=== PATIENT | male | born 1965 | race Caucasian/White ===

== ENCOUNTER → 2023-10-01 | Emergency (ER) | payer OTHER ==
[2023-10-01 13:49] LABS: SARS-CoV-2 Antigen Rapid Res Negative (Negative)
[2023-10-01 14:31] LABS: Absolute Lymphocytes (CBC) 1.6 K/uL (0.7-4.9); Hematocrit 31.2 % (39.6-49.0); Lymphocytes % 19.6 % (15.3-44.8); MCV 89.2 fL (80-100); MPV 8.3 fL (7.6-11.3); Platelets 227 thou/uL (152-406)
[2023-10-01 14:43] LABS: Protime INR 0.94
--- NOTE | 2023-10-01 14:43 | RAD REPORT ---
EXAM DESCRIPTION: RAD - Chest Single View - 10/01/2023 2:28 pm CLINICAL HISTORY: COUGH COMPARISON: <Comparisons> FINDINGS: Lines: None. Lungs: No evidence of edema or pneumonia. Pleural: No significant pleural effusions or pneumothorax. Cardiac: The heart size is within normal limits. Mediastinum: Within normal limits. Bones: No acute fractures. Other: Small radiopaque density overlying the medial right lung of doubtful significance. IMPRESSION: No acute cardiopulmonary disease.
[2023-10-01 15:06] LABS: Potassium 3.9 mEq/L (3.5-5.1)
--- NOTE | 2023-10-01 15:27 | EDPHYS ---
Physician Documentation [facility] Name: Pablito Vasquez Jr Age: 58 yrs Sex: Male : 1965 Arrival Date: 10/01/2023 Time: 12:39 Bed 12 Private MD: Shin Levin ED Physician Ac Ham HPI: 10/01 13:36 This 58 yrs old Male presents to ER via Wheelchair with complaints of Vomiting, rn Weakness, Fatigue. 13:36 The patient presents to the emergency department with nausea, cough, congestion. Onset: rn The symptoms/episode began/occurred 1 week(s) ago. Possible causes: illness vs CKD. The symptoms are aggravated by nothing. The symptoms are alleviated by nothing. Associated signs and symptoms: Pertinent positives: nausea, Cough, congestion. Severity of symptoms: At their worst the symptoms were mild in the emergency department the symptoms are unchanged. The patient has not experienced similar symptoms in the past. Patient reports has known chronic kidney disease, already had fistula for dialysis but has not matured yet. Reports for the last week has had cough congestion nausea/vomiting and is unsure if he picked something up or his kidney disease is worsening. Denies confusion or altered mental status. No chest pain. No shortness of breath. No abdominal pain.. 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 - Social history:: Smoking status: Patient reports use of chewing tobacco. Patient/guardian denies using tobacco. - Family history:: not pertinent. - Hospitalizations: : No recent hospitalization is reported. ROS: 13:36 Constitutional: Negative for fever, chills, and weight loss, Cardiovascular: Negative rn for chest pain, palpitations, and edema, Respiratory: Negative for shortness of breath, cough, wheezing, and pleuritic chest pain, Abdomen/GI: Positive for nausea/vomiting MS/Extremity: Negative for injury and deformity, Skin: Negative for injury, rash, and discoloration, Neuro: Positive for generalized weakness Exam: 13:36 Constitutional: This is a well developed, well nourished patient who is awake, alert, rn and in no acute distress. Head/Face: Normocephalic, atraumatic. ENT: Dry mucous membranes, no stridor Cardiovascular: Regular rate and rhythm. No pulse deficits. Respiratory: No increased work of breathing, no retractions or nasal flaring. Abdomen/GI: Soft, non-tender Neuro: Awake and alert, GCS 15 Vital Signs: 12:58 BP 145 / 78; Pulse 80; Resp 17; Temp 98.2; Pulse Ox 100% ; Weight 68.04 kg; Height 5 ll1 ft. 10 in. ; Pain 0/10; 15:44 BP 142 / 76; Pulse 78; Resp 18; Temp 97.9; Pulse Ox 100% on R/A; ph 12:58 Body Mass Index 21.52 (68.04 kg, 177.8 cm) ll1 12:58 Pain Scale: Adult ll1 MDM: 12:47 Patient medically screened. rn 15:24 Differential diagnosis: viral gastroenteritis, gastroenteritis, Viral syndrome, uremia, grad intern renal failure, acidosis. Data reviewed: vital signs, nurses notes, lab test result(s), and as a result, I will discharge patient. Care significantly affected by the following chronic conditions: Chronic Kidney Disease. Counseling: I had a detailed discussion with the patient and/or guardian regarding the historical points, exam findings, and any diagnostic results supporting the discharge/admit diagnosis, lab results, the need for outpatient follow up, to return to the emergency department if symptoms worsen or persist or if there are any questions or concerns that arise at home. Special discussion: I discussed with the patient/guardian in detail that at this point there is no indication for admission to the hospital. It is understood, however, that if the symptoms persist or worsen the patient needs to return immediately for re-evaluation. Based on the history and exam findings, there is no indication for further emergent testing or inpatient evaluation. ED course: Patient without significant changes compared to blood work that showed me and was drawn recently. Still shows chronic kidney disease, uremia in the 70s, creatinine 5.7. No acidosis, normal potassium, no signs of volume overload. COVID and flu negative. 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 Has appointment with a new sound installation worker that is local Dr. Moscoso this next week. I have personally reviewed all of the results, including but not limited to blood tests and imaging deemed necessary to safely discharge this patient at this time. All results given to and printed out for patient. I personally went over all the results with the patient and answered all questions. Patient will follow-up with PCP and or specialist as discussed. Return precautions given and understood.. 10/01 12:48 Order name: Flu; Complete Time: 14:42 rn 10/01 12:48 Order name: SARS RAPID; Complete Time: 14:42 rn 10/01 13:55 Order name: CBC with Diff; Complete Time: 15:11 rn 10/01 13:55 Order name: Basic Metabolic Panel; Complete Time: 15:11 rn 10/01 13:55 Order name: Protime (+inr); Complete Time: 14:45 rn 10/01 13:55 Order name: Ptt, Activated; Complete Time: 14:45 rn 10/01 13:55 Order name: BNP; Complete Time: 15:11 rn 10/01 13:55 Order name: XRAY Chest (1 view); Complete Time: 14:45 rn 10/01 13:55 Order name: IV Start; Complete Time: 14:35 rn Administered Medications: No medications were administered Disposition Summary: 10/01/23 15:27 Discharge Ordered Notes: Location: Home rn Problem: an ongoing problem rn Symptoms: are unchanged rn Condition: Stable rn Diagnosis - Chronic kidney disease, unspecified rn Followup: rn - With: Private Physician - When: As needed - Reason: Recheck today's complaints, Re-evaluation by your physician Discharge Instructions: - Discharge Summary Sheet rn - End-Stage Kidney Disease rn - Chronic Kidney Disease, Adult rn Forms: - Medication Reconciliation Form rn - Thank You Letter rn - Antibiotic advanced practice rn - Prescription Opioid Use rn - Patient Portal Instructions rn - Leadership Thank You Letter rn Signatures: Dispatcher [employer] Ac Valiente MD MD rn Lewis, Lynsay, RN RN ll1
--- NOTE | 2023-10-01 15:27 | ER ---
Nurse's Notes [facility] Name: Pablito Vasquez Jr Age: 58 yrs Sex: Male : 1965 Arrival Date: 10/01/2023 Time: 12:39 Bed 12 Private MD: Shin Levin Diagnosis: Chronic kidney disease, unspecified Presentation: 10/01 12:58 Chief complaint: Patient states: N/V, weakness, fatigue for 1 week. Cough/"sinus stuff" ll1 for 1 week. No known fever. Coronavirus screen: Vaccine status: Patient reports being unvaccinated. Client denies travel out of the [place] in the last 14 days. congestion, cough unrelated to allergies, fatigue. Ebola Screen: Patient denies travel to an Ebola-affected area in the 21 days before illness onset. Initial Sepsis Screen: Does the patient meet any 2 criteria? No. Patient's initial sepsis screen is negative. Does the patient have a suspected source of infection? No. Patient's initial sepsis screen is negative. Risk Assessment: Do you want to hurt yourself or someone else? Patient reports no desire to harm self or others. Onset of symptoms was September 24, 2023. 12:58 Method Of Arrival: Wheelchair ll1 12:58 Acuity: HERIBERTO 3 ll1 Triage Assessment: 12:58 General: Appears uncomfortable, Behavior is calm, cooperative, appropriate for age. ll1 General: Reports fatigue for. Pain: Denies pain. EENT: Reports nasal discharge. Neuro: Reports weakness. Respiratory: Reports cough that is. GI: Reports nausea, vomiting. 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 - Social history:: Smoking status: Patient reports use of chewing tobacco. Patient/guardian denies using tobacco. - Family history:: not pertinent. - Hospitalizations: : No recent hospitalization is reported. Screenin:44 [facility] ED Fall Risk Assessment (Adult) History of falling in the last 3 months, ph including since admission No falls in past 3 months (0 pts) Score/Fall Risk Level 0 - 2 = Low Risk Oriented to surroundings, Maintained a safe environment, Provided non-skid footwear, Hourly rounding (assess needs \\T\\ fall precautionary measures) done. Abuse screen: Denies threats or abuse. Denies injuries from another. Nutritional screening: No deficits noted. Tuberculosis screening: No symptoms or risk factors identified. Assessment: 15:43 General: Appears in no apparent distress. comfortable, slender, well groomed, Behavior ph is calm, cooperative, appropriate for age, Reports fatigue for >3 days. Pain: Denies pain. Neuro: Level of Consciousness is awake, alert, obeys commands, Oriented to person, place, time, situation. Cardiovascular: Capillary refill < 3 seconds in bilateral fingers Patient's skin is warm and dry. GI: Abdomen is non-distended, Reports nausea, vomiting, Patient currently denies abdominal pain. Derm: Skin is pink, warm \\T\\ dry. Vital Signs: 12:58 BP 145 / 78; Pulse 80; Resp 17; Temp 98.2; Pulse Ox 100% ; Weight 68.04 kg; Height 5 ll1 ft. 10 in. ; Pain 0/10; 15:44 BP 142 / 76; Pulse 78; Resp 18; Temp 97.9; Pulse Ox 100% on R/A; ph 12:58 Body Mass Index 21.52 (68.04 kg, 177.8 cm) ll1 12:58 Pain Scale: Adult ll1 ED Course: 12:40 Patient arrived in ED. mr 12:41 Shin Levin, is Private Physician. mr 12:47 Ac Ham MD is Attending Physician. rn 12:57 Arm band placed on. ll1 12:59 Triage completed. ll1 14:16 Patient placed in an exam room, on a stretcher. ll1 14:23 Initial lab(s) drawn, by me, sent to lab. Inserted saline lock: 22 gauge in right hand, iw using aseptic technique. 14:30 XRAY Chest (1 view) In Process Unspecified. EDMS 14:43 Annalisa Rudd, RN is Primary Nurse. ph 15:45 Patient has correct armband on for positive identification. Bed in low position. Call ph light in reach. Side rails up X 1. Door closed. Noise minimized. Warm blanket given. 15:45 No provider procedures requiring assistance completed. IV discontinued, intact, ph bleeding controlled, No redness/swelling at site. Pressure dressing applied. Administered Medications: No medications were administered Medication: 15:45 VIS not applicable for this client. ph Outcome: 15:27 Discharge ordered by . rn 15:45 Discharged to home via wheelchair, with significant other, ph 15:45 Condition: good 15:45 Discharge instructions given to patient, significant other, Instructed on discharge instructions, follow up and referral plans. Demonstrated understanding of instructions, follow-up care, 15:46 Patient left the ED. ph Signatures: Dispatcher [employer] EDAK Judy Hernandez, Reg Reg mr Zora Ortega, RN RN iw Ac Ham MD MD rn Hall, Patricia, RN RN ph Jayro Quintanilla RN RN ll1 Corrections: (The following items were deleted from the chart) 14:00 12:58 Chief complaint: Patient states: N/V, weakness, fatigue for 1 week. Cough/sinus ph stuff for 1 week. No known fever ll1
[2023-10-01 17:55] VITALS: BP 142/76; TEMP 97.9; O2SAT 100
== END ==
LOC: ER 12:39
DX: N18.9 Chronic kidney disease, unspecified (principal); R53.1 Weakness; F17.220 Nicotine dependence, chewing tobacco, uncomplicated; Z11.52 Encounter for screening for COVID-19
CPT/HCPCS: 36415; 71045; 80048; 83880; 85025; 85610; 85730; 87804; 87811; 99284

== ENCOUNTER 2024-05-27 09:31 | Emergency (ER) | payer OTHER ==
--- NOTE | 2024-05-27 10:02 | RAD REPORT ---
EXAM DESCRIPTION: CTAbdomen Pelvis Wo Contrast - 05/27/2024 9:50 am CLINICAL HISTORY: rectal bleeding COMPARISON: No comparisons TECHNIQUE: CT of the abdomen and pelvis was performed without contrast. All CT scans are performed using dose optimization technique as appropriate and may include automated exposure control or mA/KV adjustment according to patient size. FINDINGS: Lower chest: Mild circumferential thickened distal esophagus. This could reflect esophagit is. Liver: No acute abnormality or suspicious lesions. Biliary: Cholelithiasis without CT evidence of acute cholecystitis. Stomach: No significant focal abnormality. Duodenum: No significant focal abnormality. Pancreas: No significant abnormality. Spleen: No significant abnormality. Adrenal: No suspicious lesions. Kidney/ureter: No hydronephrosis. No renal calculi. Retroperitoneum: No retroperitoneal adenopathy. Vascular: Atherosclerosis. Bowel: Mild wall thickening versus underdistention involving the midtransverse colon through the rect um. There is some questionable stranding at the region of the splenic flexure.. Peritoneum: No ascites or free air. Bladder: Grossly unremarkable. Reproductive: Mild prostatomegaly. Bones: No acute fracture. Moderate severe disc height loss L5-S1 with posterior spurring. Other: n/a IMPRESSION: Possible colitis versus underdistention extending from the mid transverse colon to the r ectum. This includes at the splenic flexure were there is some mild stranding. Colitis from infectiou s, inflammatory, as well as ischemic etiologies are within the differential. Cholelithiasis without CT evidence of acute cholecystitis.
[2024-05-27] MEDS ORDERED: NA CHLORIDE 0.9% 1,000 ML ONE ×2 (10:58→12:00)
[2024-05-27] MEDS ORDERED: NA CHLORIDE 0.9% 100 ML ONE ×2 (11:15→14:40)
[2024-05-27] MEDS ORDERED: PIPERACIL/TAZO 3.375 GM VIAL IV ONE (11:15)
[2024-05-27 11:55] LABS: Absolute Lymphocytes (CBC) 0.5 K/uL (0.7-4.9); Absolute Monocytes 0.1 K/uL (0.1-1.3); Absolute Neutrophil 0.9 K/uL (1.8-8.0); Basophils % 0.6 % (0-1.3); Eosinophils % 1.3 % (0-4.4); Hematocrit 7.5 % (39.6-49.0); Lymphocytes % 34.3 % (15.3-44.8); MCH 31.4 pg (27.0-35.0); MCHC 32.1 g/dL (32.0-36.0); MCV 97.6 fL (80-100); MPV 8.4 fL (7.6-11.3); Monocytes % 7.7 % (3.3-12.3); Neutrophils % 56.1 % (41.7-73.7); Platelets 45 thou/uL (152-406); RBC Red Blood Cell Count 0.77 M/uL (4.33-5.43); Red Cell Distribution Width 13.9 % (12.1-15.2)
[2024-05-27 12:00] LABS: PT Prothrombin Time 33.6 SECONDS (9.4-12.5); PTT, Activated Partial Thromb 99.8 SECONDS (24.3-36.9); Protime INR 3.1
[2024-05-27 12:12] LABS: Alkaline Phosphatase 18 U/L (45-117); BUN Blood Urea Nitrogen 16 mg/dL (7-18); Glomerular Filtration Rate 100 ml/min (=/>90); Glucose Level 22 mg/dL (74-106); Lipase 73 U/L (13-75)
[2024-05-27 12:13] LABS: ALT/SGPT < 14 U/L (16-61); AST/SGOT < 10 U/L (15-37); Albumin < 0.9 g/dL (3.4-5.0); Albumin/Globulin Ratio ND (1.1-1.8); Bicarbonate < 8 mEq/L (21-32); Bilirubin Total < 0.2 mg/dL (0.2-1.0); Globulin 1.1 g/dL (2.3-3.5); Protein, Total < 2.0 g/dL (6.4-8.2)
[2024-05-27 12:15] LABS: Sodium Level 156 mEq/L (136-145)
[2024-05-27 12:16] LABS: Hemoglobin 2.4 g/dL (13.6-17.9)
[2024-05-27 12:47] LABS: Absolute Basophils 0.1 K/uL (0-0.5); Absolute Eosinophils 0.1 K/uL (0-0.5); Absolute Lymphocytes (CBC) 2.2 K/uL (0.7-4.9); Absolute Monocytes 0.7 K/uL (0.1-1.3); Absolute Neutrophil 4.7 K/uL (1.8-8.0); Basophils % 1.1 % (0-1.3); Eosinophils % 0.7 % (0-4.4); Hemoglobin 9.7 g/dL (13.6-17.9); Lymphocytes % 28.5 % (15.3-44.8); MCH 30.7 pg (27.0-35.0); MCHC 32.2 g/dL (32.0-36.0); MCV 95.3 fL (80-100); MPV 9.1 fL (7.6-11.3); Monocytes % 8.8 % (3.3-12.3); Neutrophils % 60.9 % (41.7-73.7); Platelets 164 thou/uL (152-406); RBC Red Blood Cell Count 3.15 M/uL (4.33-5.43); Red Cell Distribution Width 14.1 % (12.1-15.2)
[2024-05-27 12:55] LABS: PT Prothrombin Time 11.6 SECONDS (9.4-12.5); PTT, Activated Partial Thromb 30.4 SECONDS (24.3-36.9); Protime INR 1.04
[2024-05-27 13:12] LABS: ALT/SGPT 17 U/L (16-61); Albumin 2.6 g/dL (3.4-5.0); Albumin/Globulin Ratio 0.9 (1.1-1.8); Alkaline Phosphatase 116 U/L (45-117); Anion Gap 17.8 mEq/L (5.0-15.0); BUN Blood Urea Nitrogen 76 mg/dL (7-18); Bicarbonate 20 mEq/L (21-32); Bilirubin Total 0.6 mg/dL (0.2-1.0); Glomerular Filtration Rate 9 ml/min (=/>90); Glucose Level 129 mg/dL (74-106); Lipase 380 U/L (13-75); Potassium 4.8 mEq/L (3.5-5.1); Protein, Total 5.6 g/dL (6.4-8.2); Sodium Level 138 mEq/L (136-145)
[2024-05-27 13:13] LABS: AST/SGOT < 10 U/L (15-37)
--- NOTE | 2024-05-27 13:40 | EDPHYS ---
Physician Documentation [facility] Name: Pablito Vasquez Jr Age: 58 yrs Sex: Male : 1965 Arrival Date: 05/27/2024 Time: 09:31 Bed 4 Private MD: ED Physician Raj Del Real HPI: 05/27 10:02 This 58 yrs old Male presents to ER via Unassigned with complaints of Rectal bleeding. rt 10:02 Patient presents to the ED with rectal bleeding starting today about 5. States that at rt this bright red blood. The patient reports that he has been feeling somewhat weak for the past several days but only noticed the bleeding today. Had a colonoscopy with polyp removal several months ago. The patient denies other acute complaints at this time, symptoms are moderate in severity, no other aggravating or elevating factors. Reports nausea without vomiting.. Historical: - Allergies: 10:05 No Known Allergies; ld1 - PMHx: 10:05 kidney failure (MRSA); MRSA; Hypertensive disorder; ld1 - PSHx: 10:05 fistula L arm (MRSA); ld1 - Immunization history:: Adult Immunizations up to date. - Infectious Disease History:: Denies. - Family history:: not pertinent. - Social history:: Smoking status: Patient denies any tobacco usage or history of. ROS: 10:02 Constitutional: Negative for fever, chills, and weight loss, Cardiovascular: Negative rt for chest pain, palpitations, and edema, Respiratory: Negative for shortness of breath, cough, wheezing, and pleuritic chest pain, 10:02 MS/Extremity: Negative for injury and deformity, Skin: Negative for injury, rash, and discoloration, 10:02 Abdomen/GI: Positive for nausea, Negative for abdominal pain, Exam: 10:02 Constitutional: This is a well developed, well nourished patient who is awake, alert, rt and in no acute distress. Head/Face: Normocephalic, atraumatic. Chest/axilla: Normal chest wall appearance and motion. Nontender with no deformity. No lesions are appreciated. Cardiovascular: Regular rate and rhythm with a normal S1 and S2. No gallops, murmurs, or rubs. Normal PMI, no JVD. No pulse deficits. Respiratory: Lungs have equal breath sounds bilaterally, clear to auscultation and percussion. No rales, rhonchi or wheezes noted. No increased work of breathing, no retractions or nasal flaring. Abdomen/GI: Soft, non-tender, with normal bowel sounds. No distension or tympany. No guarding or rebound. No evidence of tenderness throughout. Skin: Warm, dry with normal turgor. Normal color with no rashes, no lesions, and no evidence of cellulitis. MS/ Extremity: Pulses equal, no cyanosis. Neurovascular intact. Full, normal range of motion. Neuro: Awake and alert, GCS 15, oriented to person, place, time, and situation. Cranial nerves II-XII grossly intact. Motor strength 5/5 in all extremities. Sensory grossly intact. Cerebellar exam normal. Normal gait. 11:33 ECG was reviewed by the Attending Physician. rt Vital Signs: 10:00 BP 124 / 80; Pulse 77; Resp 18; Pulse Ox 100% on R/A; ld1 10:03 BP 154 / 83; Pulse 74; Resp 18; Temp 97.5(TE); Pulse Ox 100% on R/A; Weight 68.04 kg; ld1 Height 5 ft. 10 in. ; Pain 0/10; 10:07 BP 124 / 80; Pulse 77; Resp 18; Pulse Ox 99% on R/A; ld1 10:45 BP 73 / 55; Pulse 77; Resp 18; Pulse Ox 100% on R/A; ld1 11:30 BP 80 / 57; Pulse 68; Resp 18; Pulse Ox 100% on R/A; ld1 11:45 BP 69 / 56; Pulse 69; Resp 18; Pulse Ox 100% on R/A; ld1 11:48 BP 73 / 60; Pulse 70; Resp 18; Pulse Ox 100% on R/A; ld1 11:50 BP 82 / 58; Pulse 70; Resp 18; Pulse Ox 99% on R/A; ld1 12:12 BP 58 / 45; Pulse 71; Resp 16; Temp 97.6; Pulse Ox 100% ; ar6 12:17 BP 64 / 43; Pulse 72; Resp 16; Temp 97.6; Pulse Ox 100% on R/A; ar6 12:22 BP 85 / 64; Pulse 68; Resp 17; Temp 96.8; Pulse Ox 100% on R/A; ar6 12:25 BP 85 / 64; Pulse 68; Resp 17; Temp 96.8; Pulse Ox 100% on R/A; ar6 12:27 BP 85 / 64; Pulse 67; Resp 18; Temp 97.2; Pulse Ox 100% on R/A; ar6 12:32 BP 80 / 60; Pulse 69; Resp 18; Temp 97.3; Pulse Ox 100% on R/A; ar6 12:37 BP 124 / 70; Pulse 69; Resp 18; Temp 97.3; Pulse Ox 100% on R/A; ar6 12:42 BP 135 / 79; Pulse 68; Resp 20; Pulse Ox 100% on R/A; ar6 12:47 BP 118 / 79; Pulse 73; Resp 16; Temp 97.2; Pulse Ox 100% on R/A; ar6 12:56 BP 118 / 79; Pulse 72; Resp 14; Pulse Ox 98% on R/A; mb9 13:15 BP 114 / 82; Pulse 74; Resp 8; Pulse Ox 100% ; mb9 13:35 BP 117 / 72; Pulse 70; Resp 18; Pulse Ox 100% ; mb9 13:55 BP 66 / 56; Pulse 70; Resp 15; Pulse Ox 100% ; mb9 14:05 BP 58 / 49; Pulse 69; Resp 15; Pulse Ox 100% on R/A; mb9 14:11 BP 58 / 47; Pulse 71; Resp 16; Pulse Ox 100% on R/A; mb9 14:35 BP 103 / 70; Pulse 71; Resp 14; Pulse Ox 100% on R/A; ld1 14:50 BP 141 / 81; Pulse 75; Resp 18; Pulse Ox 100% on R/A; ld1 15:00 BP 172 / 89; Pulse 73; Resp 12; Pulse Ox 100% on R/A; ld1 15:10 BP 148 / 82; Pulse 73; Resp 12; Pulse Ox 100% on R/A; ld1 15:32 BP 161 / 84; Pulse 74; Resp 16; Temp 97.3(TE); Pulse Ox 100% ; mb9 10:03 Body Mass Index 21.52 (68.04 kg, 177.8 cm) ld1 10:03 Pain Scale: Adult ld1 12:12 baseline v/s for blood transfusion; see tranfusion flowsheet ar6 12:17 5 minute V/S transfusion check; see transfusion flowsheet ar6 12:22 10 minute v/s check for transfusion; see transfusion flowsheet ar6 12:25 timed completed V/S for blood transfusion; see blood transfusion flowsheet ar6 12:27 baseline V/S for 2nd unit for blood transfusion; see blood transfusion flowsheet ar6 12:32 5 minute V/S for 2nd unit for blood transfusion; see blood transfusion flowsheet ar6 12:37 10 minute V/S for 2nd unit for blood transfusion; see blood transfusion flowsheet ar6 12:42 15 minutes V/S for 2nd unit for blood transfusion; see blood transfusion flowsheet ar6 12:47 time completed V/S for 2nd unit for blood transfusion; see blood transfusion flowsheet ar6 Procedures: 16:01 Central Line: the site was prepped with ChloraPrep, a triple lumen catheter was rt inserted, in the left internal jugular vein, in 1 attempts. placement was verified, by CXR, by blood return, the site was dressed with Chlorhexidine impregnated Tegaderm, the patient tolerated the procedure, well. MDM: 09:32 Patient medically screened. rt 16:01 Differential Diagnosis Colitis, lower GI bleed, upper GI bleed. Data reviewed: vital rt signs, nurses notes, lab test result(s), EKG, radiologic studies. Consideration of Admission/Observation Patient requires transfer due to ICU capacity. I considered the following discharge prescriptions or medication management in the emergency department Medications were administered in the Emergency Department. See MAR. Independent interpretation of the following test(s) in the Emergency Department CT Scan: My interpretation is No bowel obstruction seen on my interpretation of CT scan images. Care significantly affected by the following chronic conditions: Chronic Kidney Disease. Counseling: I had a detailed discussion with the patient and/or guardian regarding the historical points, exam findings, and any diagnostic results supporting the discharge/admit diagnosis, lab results, radiology results, the need to transfer to another facility. Response to treatment: the patient's symptoms have mildly improved after treatment. ED course: Patient was initially normotensive, became significantly hypotensive, requiring multiple blood products. Patient had continued hypotension despite blood products, Levophed was started, much improvement of the patient's blood pressure. Will transfer patient for higher level of care.. 05/27 09:36 Order name: CBC with Diff; Complete Time: 13:04 rt 05/27 09:36 Order name: CMP; Complete Time: 13:04 rt 05/27 09:36 Order name: Lipase; Complete Time: 13:04 rt 05/27 09:36 Order name: Type And Screen rt 05/27 09:36 Order name: PT-INR; Complete Time: 13:04 rt 05/27 09:36 Order name: Ptt, Activated; Complete Time: 13:04 rt 05/27 11:04 Order name: Blood Culture Adult (2) rt 05/27 11:04 Order name: Lactate w/ 2H reflex if indic.; Complete Time: 13:04 rt 05/27 12:05 Order name: Packed RBC Leukored EDMS 05/27 12:05 Order name: RBC Leukored Pheresis EDMS 05/27 12:24 Order name: Ptt, Activated; Complete Time: 13:04 ap3 05/27 12:24 Order name: PT-INR; Complete Time: 13:04 ap3 05/27 12:24 Order name: CBC with Diff; Complete Time: 13:04 ap3 05/27 12:24 Order name: CMP; Complete Time: 13:28 ap3 05/27 12:24 Order name: Lipase; Complete Time: 13:28 ap3 05/27 13:36 Order name: CBC with Diff; Complete Time: 14:56 rt 05/27 13:36 Order name: CMP; Complete Time: 14:56 rt 05/27 13:36 Order name: Lactate w/ 2H reflex if indic.; Complete Time: 14:56 rt 05/27 13:36 Order name: PT-INR; Complete Time: 14:18 rt 05/27 13:36 Order name: Ptt, Activated; Complete Time: 14:18 rt 05/27 13:54 Order name: Bb Add On bd 05/27 14:15 Order name: ABO/RH no charge; Complete Time: 14:18 EDMS 05/27 14:23 Order name: Packed RBCs (Additional Unit) EDIN 05/27 14:59 Order name: Fresh Frozen Plasma EDIN 05/27 09:36 Order name: CT Abd/Pelvis - Without Contrast; Complete Time: 10:04 rt 05/27 14:44 Order name: XRAY Chest (1 view); Complete Time: 14:56 ld1 05/27 11:04 Order name: EKG; Complete Time: 11:04 rt 05/27 09:36 Order name: IV Saline Lock; Complete Time: 10:10 rt 05/27 09:36 Order name: Labs collected and sent; Complete Time: 11:34 rt 05/27 11:04 Order name: Accucheck; Complete Time: 12:04 rt 05/27 11:04 Order name: Cardiac monitoring; Complete Time: 11:30 rt 05/27 11:04 Order name: EKG - Nurse/Tech; Complete Time: 11:33 rt 05/27 11:04 Order name: IV Saline Lock - Large Bore; Complete Time: 11:30 rt 05/27 11:04 Order name: O2 Per Protocol; Complete Time: 11:34 rt 05/27 11:04 Order name: O2 Sat Monitoring; Complete Time: 11:34 rt 05/27 11:04 Order name: Vital Signs; Complete Time: 11:34 rt 05/27 13:11 Order name: Labs - recollect needed: collect abo\E\rh no charge; Complete Time: 15:55 bd EC:33 Rate is 69 beats/min. Rhythm is regular, Normal Sinus Rhythm with No ectopy. QRS [place] rt is Normal. MN interval is normal. QRS interval is normal. QT interval is normal. No Q waves. T waves are Normal. No ST changes noted. Interpreted by me. Administered Medications: 11:12 Drug: NS 0.9% IV 1000 ml IV at 1 bolus Per protocol; 1000 mL bolus Route: IV; Rate: 1 mb9 bolus; Site: right hand; 11:56 Follow up: Response: No adverse reaction; No change in condition; IV Status: Completed ar6 infusion; IV Intake: 1000ml 12:00 Follow up: IV Status: Completed infusion; IV Intake: 1000ml ld1 11:34 Drug: Piperacillin-Tazobactam IVPB 3.375 grams IVPB once over 60 mins; (mix in NS 100 mb9 mL) Route: IVPB; Infused Over: 60 mins; Site: right forearm; 12:04 Follow up: Response: No adverse reaction; IV Status: Completed infusion ar6 13:13 Follow up: Response: No adverse reaction; IV Status: Completed infusion; IV Intake: ld1 100ml 13:30 Drug: Norepinephrine IV 0.1 mcg/kg/min IV at calculated rate See Administration mb9 Instructions; (Standard concentration 4 mg / 250 mL D5W); Recommended max rate 3 mcg/kg/min; Titrate 0.05 mcg/kg/min as often as every 5 minutes to achieve goal (see titration policy); Goal parameter MAP greater than 65 mmHg. Route: IV; Rate: calculated rate; Site: right forearm; 15:30 Follow up: Response: No adverse reaction; IV Status: Infusion continued upon transfer mb9 14:37 Drug: Calcium Gluconate IVPB 1 grams IVPB once over 60 mins; (mix in NS 100 mL) Route: mb9 IVPB; Infused Over: 60 mins; Site: right forearm; 15:29 Follow up: Response: No adverse reaction; IV Status: Infusion continued upon transfer mb9 14:50 Drug: tranexamic acid 1000 mg IV at calculated rate once; administer at a rate not to mb9 exceed 100 mg per min Route: IV; Rate: calculated rate; Site: left jugular; 15:30 Follow up: Response: No adverse reaction; IV Status: Completed infusion mb9 Disposition Summary: 05/27/24 13:39 Transfer Ordered Notes: Transfer Location: [facility] rt Reason: Higher level of care rt Condition: Critical rt Problem: new rt Symptoms: have improved rt Accepting Physician: (05/27/24 15:55) mb9 Diagnosis - Colitis rt - Lower GI bleed rt - Hemorrhagic shock rt Forms: - Medication Reconciliation Form rt - SBAR form rt Critical care time excluding procedures: 16:01 Critical care time: Bedside Care: 45 minutes, Consultation: 10 minutes. Total time: 55 rt minutes Signatures: Dispatcher [employer] EDMaricarmen Gorman Lauren, RN RN ld1 Judy Connors RN RN mb9 Raj Del Real MD MD rt Kymberly Mcdonough RN ar6 Corrections: (The following items were deleted from the chart) 09:36 09:36 CBC+H.LAB.BRZ ordered. EDMS EDMS 09:36 09:36 COMPREHENSIVE METABOLIC PANEL+C.LAB.BRZ ordered. EDMS EDMS 09:36 09:36 LIPASE+C.LAB.BRZ ordered. EDMS EDMS 09:36 09:36 TYPE AND SCREEN+BB.LAB.BRZ ordered. EDMS EDMS 09:36 09:36 PROTIME (+INR)+COAG.LAB.BRZ ordered. EDMS EDMS 09:36 09:36 PTT, ACTIVATED+COAG.LAB.BRZ ordered. EDMS EDMS 13:37 13:37 CBC+H.LAB.BRZ ordered. EDMS EDMS 13:37 13:37 COMPREHENSIVE METABOLIC PANEL+C.LAB.BRZ ordered. EDMS EDMS 13:37 13:37 LACTATE+C.LAB.BRZ ordered. EDMS EDMS 13:37 13:37 PROTIME (+INR)+COAG.LAB.BRZ ordered. EDMS EDMS 13:37 13:37 PTT, ACTIVATED+COAG.LAB.BRZ ordered. EDMS EDMS 15:55 13:39 Dr. tineo mb9
--- NOTE | 2024-05-27 13:40 | ER ---
Nurse's Notes [facility] Name: Pablito Vasquez Jr Age: 58 yrs Sex: Male : 1965 Arrival Date: 05/27/2024 Time: 09:31 Bed 4 Private MD: Diagnosis: Colitis;Lower GI bleed;Hemorrhagic shock Presentation: 05/27 10:03 Chief complaint: EMS states: toned out to patient home for rectal bleeding that started ld1 at 0400 this morning, pt denies injury, no pain. Coronavirus screen: At this time, the client does not indicate any symptoms associated with coronavirus-19. Ebola Screen: No symptoms or risks identified at this time. Initial Sepsis Screen: Does the patient meet any 2 criteria? No. Patient's initial sepsis screen is negative. Does the patient have a suspected source of infection? No. Patient's initial sepsis screen is negative. Risk Assessment: Do you want to hurt yourself or someone else? Patient reports no desire to harm self or others. Onset of symptoms was May 27, 2024. 10:03 Method Of Arrival: EMS: [facility] ld1 10:03 Acuity: HERIBERTO 3 ld1 10:30 Acuity: HERIBERTO 2 mb9 Triage Assessment: 10:05 General: Appears in no apparent distress. comfortable, Behavior is calm, cooperative, ld1 appropriate for age. Pain: Denies pain. EENT: No signs and/or symptoms were reported regarding the EENT system. Neuro: Level of Consciousness is awake, alert, obeys commands, Oriented to person, place, time, situation, Appropriate for age. Cardiovascular: Capillary refill < 3 seconds Patient's skin is warm and dry. Respiratory: Airway is patent Respiratory effort is even, unlabored. GI: Abdomen is flat, non-distended, Reports rectal bleeding, bloody stool. : No signs and/or symptoms were reported regarding the genitourinary system. Derm: No signs and/or symptoms reported regarding the dermatologic system. Musculoskeletal: No signs and/or symptoms reported regarding the musculoskeletal system. Historical: - Allergies: 10:05 No Known Allergies; ld1 - PMHx: 10:05 kidney failure (MRSA); MRSA; Hypertensive disorder; ld1 - PSHx: 10:05 fistula L arm (MRSA); ld1 - Immunization history:: Adult Immunizations up to date. - Infectious Disease History:: Denies. - Family history:: not pertinent. - Social history:: Smoking status: Patient denies any tobacco usage or history of. Screenin:07 [facility] ED Fall Risk Assessment (Adult) History of falling in the last 3 months, ld1 including since admission No falls in past 3 months (0 pts) Confusion or Disorientation No (0 pts) Intoxicated or Sedated No (0 pts) Impaired Gait No (0 pts) Mobility Assist Device Used No (0 pt) Altered Elimination No (0 pt) Score/Fall Risk Level 0 - 2 = Low Risk Oriented to surroundings, Maintained a safe environment, Educated pt \T\ family on fall prevention, incl call for assistance when getting out of bed, Assessed \T\ reinforced patient's understanding of fall precautions, Provided non-skid footwear, Hourly rounding (assess needs \T\ fall precautionary measures) done, Used ambulatory aids as needed (educated on \T\ assisted with), Used gait belt as appropriate. Abuse screen: Denies threats or abuse. Denies injuries from another. Nutritional screening: No deficits noted. Tuberculosis screening: No symptoms or risk factors identified. Assessment: 10:07 Reassessment: See triage assessment. ld1 10:45 Reassessment: Notified ERP of BP. See MAR for orders. ld1 11:58 Reassessment: Notified ERP of BP 73/60. ERP verbal order of 2U PRBC uncrossed emergent ld1 blood. Notified charge nurse - Lab called at this time. General: Appears in no apparent distress. comfortable, Behavior is calm, cooperative, appropriate for age. Pain: Denies pain. Neuro: Level of Consciousness is awake, alert, obeys commands, Oriented to person, place, time, situation, Appropriate for age. Cardiovascular: Capillary refill < 3 seconds Rhythm is sinus rhythm. Respiratory: Airway is patent Respiratory effort is even, unlabored. Derm: Skin is pale, Skin temperature is cool. 12:45 Reassessment: Patient and/or family updated on plan of care and expected duration. Pain mb9 level reassessed. Patient is alert, oriented x 3, equal unlabored respirations, skin warm/dry/pink. Patient states symptoms have not improved. 13:15 General: Appears uncomfortable, Behavior is restless. GI: Stools are reported to be mb9 bright red bleeding noted. Large amounts of clots noted in stool. Derm: Skin is pale, Skin temperature is cool. Musculoskeletal: Range of motion: intact in all extremities. 14:12 Reassessment: ERP notified of pts BP of 58/47. Pt states he is having tunnel vision. Pt ar6 appears uncomfortable, pale, and diaphoretic. Verbal reassurance given to pt and at bedside. 14:45 Reassessment: Patient appears in no apparent distress at this time. Patient and/or mb9 family updated on plan of care and expected duration. Pain level reassessed. Patient states feeling better. Patient states symptoms have improved. 15:25 Reassessment: Patient appears in no apparent distress at this time. Patient and/or mb9 family updated on plan of care and expected duration. Pain level reassessed. Patient states feeling better. Patient states symptoms have improved. Vital Signs: 10:00 BP 124 / 80; Pulse 77; Resp 18; Pulse Ox 100% on R/A; ld1 10:03 BP 154 / 83; Pulse 74; Resp 18; Temp 97.5(TE); Pulse Ox 100% on R/A; Weight 68.04 kg; ld1 Height 5 ft. 10 in. ; Pain 0/10; 10:07 BP 124 / 80; Pulse 77; Resp 18; Pulse Ox 99% on R/A; ld1 10:45 BP 73 / 55; Pulse 77; Resp 18; Pulse Ox 100% on R/A; ld1 11:30 BP 80 / 57; Pulse 68; Resp 18; Pulse Ox 100% on R/A; ld1 11:45 BP 69 / 56; Pulse 69; Resp 18; Pulse Ox 100% on R/A; ld1 11:48 BP 73 / 60; Pulse 70; Resp 18; Pulse Ox 100% on R/A; ld1 11:50 BP 82 / 58; Pulse 70; Resp 18; Pulse Ox 99% on R/A; ld1 12:12 BP 58 / 45; Pulse 71; Resp 16; Temp 97.6; Pulse Ox 100% ; ar6 12:17 BP 64 / 43; Pulse 72; Resp 16; Temp 97.6; Pulse Ox 100% on R/A; ar6 12:22 BP 85 / 64; Pulse 68; Resp 17; Temp 96.8; Pulse Ox 100% on R/A; ar6 12:25 BP 85 / 64; Pulse 68; Resp 17; Temp 96.8; Pulse Ox 100% on R/A; ar6 12:27 BP 85 / 64; Pulse 67; Resp 18; Temp 97.2; Pulse Ox 100% on R/A; ar6 12:32 BP 80 / 60; Pulse 69; Resp 18; Temp 97.3; Pulse Ox 100% on R/A; ar6 12:37 BP 124 / 70; Pulse 69; Resp 18; Temp 97.3; Pulse Ox 100% on R/A; ar6 12:42 BP 135 / 79; Pulse 68; Resp 20; Pulse Ox 100% on R/A; ar6 12:47 BP 118 / 79; Pulse 73; Resp 16; Temp 97.2; Pulse Ox 100% on R/A; ar6 12:56 BP 118 / 79; Pulse 72; Resp 14; Pulse Ox 98% on R/A; mb9 13:15 BP 114 / 82; Pulse 74; Resp 8; Pulse Ox 100% ; mb9 13:35 BP 117 / 72; Pulse 70; Resp 18; Pulse Ox 100% ; mb9 13:55 BP 66 / 56; Pulse 70; Resp 15; Pulse Ox 100% ; mb9 14:05 BP 58 / 49; Pulse 69; Resp 15; Pulse Ox 100% on R/A; mb9 14:11 BP 58 / 47; Pulse 71; Resp 16; Pulse Ox 100% on R/A; mb9 14:35 BP 103 / 70; Pulse 71; Resp 14; Pulse Ox 100% on R/A; ld1 14:50 BP 141 / 81; Pulse 75; Resp 18; Pulse Ox 100% on R/A; ld1 15:00 BP 172 / 89; Pulse 73; Resp 12; Pulse Ox 100% on R/A; ld1 15:10 BP 148 / 82; Pulse 73; Resp 12; Pulse Ox 100% on R/A; ld1 15:32 BP 161 / 84; Pulse 74; Resp 16; Temp 97.3(TE); Pulse Ox 100% ; mb9 10:03 Body Mass Index 21.52 (68.04 kg, 177.8 cm) ld1 10:03 Pain Scale: Adult ld1 12:12 baseline v/s for blood transfusion; see tranfusion flowsheet ar6 12:17 5 minute V/S transfusion check; see transfusion flowsheet ar6 12:22 10 minute v/s check for transfusion; see transfusion flowsheet ar6 12:25 timed completed V/S for blood transfusion; see blood transfusion flowsheet ar6 12:27 baseline V/S for 2nd unit for blood transfusion; see blood transfusion flowsheet ar6 12:32 5 minute V/S for 2nd unit for blood transfusion; see blood transfusion flowsheet ar6 12:37 10 minute V/S for 2nd unit for blood transfusion; see blood transfusion flowsheet ar6 12:42 15 minutes V/S for 2nd unit for blood transfusion; see blood transfusion flowsheet ar6 12:47 time completed V/S for 2nd unit for blood transfusion; see blood transfusion flowsheet ar6 ED Course: 09:32 Patient arrived in ED. rt 09:32 Raj Del Real MD is Attending Physician. rt 09:51 CT Abd/Pelvis - Without Contrast In Process Unspecified. EDMS 10:03 Mary Lam, RN is Primary Nurse. ld1 10:05 Triage completed. ld1 10:05 Arm band placed on right wrist. ld1 10:07 Patient has correct armband on for positive identification. Placed in gown. Bed in low ld1 position. Call light in reach. Side rails up X2. monitor technician on. Pulse ox on. NIBP on. Door closed. Noise minimized. Warm blanket given. 10:07 No provider procedures requiring assistance completed. Maintain EMS IV. Dressing ld1 intact. Good blood return noted. Site clean \T\ dry. Gauge \T\ site: 20G RH. 11:30 Initial lab(s) drawn, by me, sent to lab. Inserted saline lock: 18 gauge in right mb9 forearm, using aseptic technique. Blood collected. Flushed with 10 mL NS. 11:33 EKG done, by ED staff, reviewed by Raj Del Real MD. mb9 11:51 Blood Culture Adult (2) Sent. ar6 11:51 Lactate w/ 2H reflex if indic. Sent. ar6 11:51 Ptt, Activated Sent. ar6 11:51 PT-INR Sent. ar6 11:52 Type And Screen Sent. ar6 11:52 CBC with Diff Sent. 6 11:52 CMP Sent. ar6 11:52 Lipase Sent. ar6 12:00 Consent for blood and/or blood product transfusion explained by staff, explained by mb9 physician, signed by spouse. 12:04 Blood Culture Adult (2) Sent. ld1 12:10 Provided Education on: Blood Transfusion. ar6 12:10 One-on-one care X 15 minutes. mb9 12:14 Notified ED physician of a critical lab result(s). K+ 1, Glucose 22, Hbg 2.4, Hct 7.5, mb9 Na 156, Cl 138. 12:49 Notified ED physician of a critical lab result(s). Hbg 9.7 and hmat 30. ap3 13:10 initiated transfer to [facility]. bd 13:15 One-on-one care X 45 minutes. mb9 14:00 One-on-one care X 45 minutes. mb9 14:15 Cleaned of incontinence. mb9 14:45 Cleaned of incontinence. Pt brief soiling in blood with clots. Notified ERP. ld1 14:45 Assisted provider with central line placement. Set up central line tray. Triple lumen mb9 line placed in left internal jugular. Line placed by Raj Del Real MD Placement verified by CXR, blood return, Dressed with 4X4s, Tegaderm, Blood was collected. Patient tolerated well. Before procedure, did Practitioner(s) obtain informed consent? Yes. Patient \T\ family education about procedure, CLABSI prevention and S/S of infection? Yes. 14:52 XRAY Chest (1 view) In Process Unspecified. EDMS 15:00 One-on-one care X 60 minutes. mb9 15:21 pt accepted in transfer to [facility] by dr fall to rm [id number] admin approval given bd by Hafsa Che. 15:32 Patient transferred, IV remains in place. mb9 Administered Medications: 11:12 Drug: NS 0.9% IV 1000 ml IV at 1 bolus Per protocol; 1000 mL bolus Route: IV; Rate: 1 mb9 bolus; Site: right hand; 11:56 Follow up: Response: No adverse reaction; No change in condition; IV Status: Completed ar6 infusion; IV Intake: 1000ml 12:00 Follow up: IV Status: Completed infusion; IV Intake: 1000ml ld1 11:34 Drug: Piperacillin-Tazobactam IVPB 3.375 grams IVPB once over 60 mins; (mix in NS 100 mb9 mL) Route: IVPB; Infused Over: 60 mins; Site: right forearm; 12:04 Follow up: Response: No adverse reaction; IV Status: Completed infusion ar6 13:13 Follow up: Response: No adverse reaction; IV Status: Completed infusion; IV Intake: ld1 100ml 13:30 Drug: Norepinephrine IV 0.1 mcg/kg/min IV at calculated rate See Administration mb9 Instructions; (Standard concentration 4 mg / 250 mL D5W); Recommended max rate 3 mcg/kg/min; Titrate 0.05 mcg/kg/min as often as every 5 minutes to achieve goal (see titration policy); Goal parameter MAP greater than 65 mmHg. Route: IV; Rate: calculated rate; Site: right forearm; 15:30 Follow up: Response: No adverse reaction; IV Status: Infusion continued upon transfer mb9 14:37 Drug: Calcium Gluconate IVPB 1 grams IVPB once over 60 mins; (mix in NS 100 mL) Route: mb9 IVPB; Infused Over: 60 mins; Site: right forearm; 15:29 Follow up: Response: No adverse reaction; IV Status: Infusion continued upon transfer mb9 14:50 Drug: tranexamic acid 1000 mg IV at calculated rate once; administer at a rate not to mb9 exceed 100 mg per min Route: IV; Rate: calculated rate; Site: left jugular; 15:30 Follow up: Response: No adverse reaction; IV Status: Completed infusion mb9 Medication: 12:28 VIS not applicable for this client. mb9 Intake: 11:56 IV: 1000ml; Total: 1000ml. ar6 12:00 IV: 1000ml; Total: 2000ml. ld1 13:13 IV: 100ml; Total: 2100ml. ld1 Outcome: 13:39 ER care complete, transfer ordered by . rt 15:48 Transferred by helicopter to [facility], [facility], ld1 15:48 Transferred Note: Report given to SHAUN Adame at [facility] 15:48 Condition: unchanged 15:48 Instructed on the need for transfer, 15:55 Patient left the ED. mb9 Signatures: Dispatcher [employer] EDMS Maricarmen Husain Amanda, RN RN ap3 Mary Lam RN RN ld1 Judy Connors RN RN mb9 Raj Del Real MD MD rt Kymberly Mcdonough RN RN ar6 Corrections: (The following items were deleted from the chart) 13:50 12:17 BP 64 / 43; Pulse 72bpm; Resp 16bpm; Pulse Ox 100% RA; Temp 97.6F; ar6 ar6 05/28 08:05/27 14:12 Reassessment: Patient and/or family updated on plan of care and expected ar6 duration. Pain level reassessed. Patient is alert, oriented x 3, equal unlabored respirations, skin warm/dry/pink. Patient states symptoms have not improved. mb9 05/28 08:05/27 14:12 Reassessment: ERP notified of pts BP of 58/47 mb9 ar6
[2024-05-27 14:09] LABS: Absolute Basophils 0.1 K/uL (0-0.5); Absolute Lymphocytes (CBC) 1.6 K/uL (0.7-4.9); Absolute Monocytes 0.6 K/uL (0.1-1.3); Eosinophils % 0.4 % (0-4.4); Hematocrit 30.8 % (39.6-49.0); Hemoglobin 10.2 g/dL (13.6-17.9); Lymphocytes % 21.7 % (15.3-44.8); MCH 30.7 pg (27.0-35.0); MCHC 33.2 g/dL (32.0-36.0); MCV 92.5 fL (80-100); MPV 8.9 fL (7.6-11.3); Monocytes % 7.8 % (3.3-12.3); Neutrophils % 69.1 % (41.7-73.7); Platelets 160 thou/uL (152-406); RBC Red Blood Cell Count 3.33 M/uL (4.33-5.43); Red Cell Distribution Width 14.7 % (12.1-15.2)
[2024-05-27 14:13] LABS: PT Prothrombin Time 11.7 SECONDS (9.4-12.5); PTT, Activated Partial Thromb 29.1 SECONDS (24.3-36.9); Protime INR 1.05
[2024-05-27] MEDS ORDERED: NOREPINEPHRINE BITARTRATE/D5W 4 MG/250 ML KIT IV ONE (14:18)
[2024-05-27 14:21] LABS: ALT/SGPT 15 U/L (16-61); Albumin 2.5 g/dL (3.4-5.0); Albumin/Globulin Ratio 0.9 (1.1-1.8); Alkaline Phosphatase 116 U/L (45-117); Anion Gap 15.4 mEq/L (5.0-15.0); BUN Blood Urea Nitrogen 72 mg/dL (7-18); Bicarbonate 20 mEq/L (21-32); Bilirubin Total 0.7 mg/dL (0.2-1.0); Globulin 2.9 g/dL (2.3-3.5); Glomerular Filtration Rate 8 ml/min (=/>90); Glucose Level 132 mg/dL (74-106); Potassium 5.4 mEq/L (3.5-5.1); Protein, Total 5.4 g/dL (6.4-8.2); Sodium Level 137 mEq/L (136-145)
[2024-05-27 14:24] LABS: AST/SGOT < 10 U/L (15-37)
[2024-05-27] MEDS ORDERED: CALCIUM GLUCONATE 1 GM IVPB 1 GM/50 ML BAG IV ONE (14:25)
[2024-05-27] MEDS ORDERED: NA CHLORIDE 0.9% 1,500 ML ONE (14:32)
[2024-05-27] MEDS ORDERED: TRANEXAMIC ACID 1,000 MG/10 ML VIAL IV ONE (14:39)
--- NOTE | 2024-05-27 14:55 | RAD REPORT ---
EXAM DESCRIPTION: RAD - Chest Single View - 05/27/2024 2:51 pm CLINICAL HISTORY: Central line Chest pain. COMPARISON: <Comparisons> FINDINGS: Portable technique limits examination quality. Left-sided venous catheter its tip in the SVC. No postprocedure pneumothorax. The heart is normal in size. No displaced fractures. IMPRESSION: No postprocedure pneumothorax.
[2024-05-27 16:41] VITALS: O2SAT 100
[2024-05-27 16:56] VITALS: BP 161/84; TEMP 97.3
== END 2024-05-27 15:55 | disposition short-term general hospital (02) ==
LOC: ER 09:31
PROC: 30233K1 Transfusion of Nonautologous Frozen Plasma into Peripheral Vein, Percutaneous Approach (ICD-10-PCS; principal; 2024-05-27)
PROC: 30233N1 Transfusion of Nonautologous Red Blood Cells into Peripheral Vein, Percutaneous Approach (ICD-10-PCS; 2024-05-27)
PROC: 05HN33Z Insertion of Infusion Device into Left Internal Jugular Vein, Percutaneous Approach (ICD-10-PCS; 2024-05-27)
DX: R57.8 Other shock (principal); K52.9 Noninfective gastroenteritis and colitis, unspecified; I12.9 Hypertensive chronic kidney disease with stage 1 through stage 4 chronic kidney disease, or unspecified chronic kidney disease; N18.9 Chronic kidney disease, unspecified
CPT/HCPCS: 87040 ×2; 85025 ×3; 36415; 86900; 86850; 85610 ×3; 86901; 83605 ×2; 85730 ×3; 86920 ×3; 83690 ×2; 86927; 80053 ×3; 74176; 71045; 36430; 36556; J0612; J2543; P9016 ×3; P9017; J7040 ×2; J7030; 93005